=== PATIENT | female | born 1975 | race Caucasian/White ===

== ENCOUNTER → 2020-09-26 08:20 | Outpatient (CLI) | payer OTHER, SELFPAY ==
[2020-08-21 14:11] VITALS: BMI 19.4
[2020-09-26 13:00] LABS: Cholesterol 182 mg/dL (200); High Density Lipoprotein 84 mg/dL; Thyroid Stim Hormone (TSH) 3.06 uIU/mL (0.358-3.74); Triglycerides 52 mg/dL; Very Low Density Lipoprotein 10 mg/dL (5-40)
[2020-09-26 13:02] LABS: Hemoglobin A1c 5.2 % (3.8-5.6)
== END ==
PROVIDERS: PCP Internal Medicine; Referring Provider Internal Medicine; Visit Provider Internal Medicine
DX: Z00.00 Encounter for general adult medical examination without abnormal findings (principal); R53.82 Chronic fatigue, unspecified; Z87.898 Personal history of other specified conditions
CPT/HCPCS: 36415; 80061; 83036; 84443

== ENCOUNTER 2021-05-10 07:04 | Day surgery (SDC) | payer SELFPAY, OTHER ==
[2021-05-01 05:36] VITALS: BMI 18.6
[2021-05-10] VITALS (7 sets, daily range): BP systolic 87–121; BP diastolic 47–64; PULSE 58–70; RESP 14–16; TEMP 36.2–36.8; O2SAT 98–100; BMI 18.4
[2021-05-10 07:38] LABS: Internal QC Validated? YES +Cl - CLEAR BKGD; Pregnancy, Urine Negative Negative
[2021-05-10] MEDS: Lactated Ringers 1,000 ML 100 ML IV (07:44)
--- NOTE | 2021-05-10 07:46 | PCM.HP.BLA ---
History and Physical Date of Admission: 05/10/21 Intake Visit Reasons: Blood in stool Chief Complaint: Blood per rectum Assistant Maintenance Manager Required: No Accompanied by: Self Is patient in pain?: No Allergies pseudoephedrine [From Sudafed] Allergy (Unknown, Verified 05/01/21 13:13) dizziness Sulfa (Sulfonamide Antibiotics) Allergy (Unknown, Verified 05/01/21 13:13) rash Medications NK 05/01/21 [History Confirmed 05/01/21] PFSH Medical History (Updated 05/01/21 @ 13:15 by Yin Collins) Chronic fatigue syndrome Constipation Heart murmur Hemorrhoids History of breast lump MVP (mitral valve prolapse) Ovarian cyst Rectal bleeding Surgical History (Updated 05/01/21 @ 13:15 by Yin Collins) No significant past surgical history Family History (Updated 05/01/21 @ 13:07 by Yin Collins) Father Myocardial infarction, Onset Age: 70 Lung cancer Other COPD (chronic obstructive pulmonary disease) Social History (Updated 05/01/21 @ 13:08 by Yin Collins) Smoking Status: Never smoker second hand exposure: No alcohol intake: current alcohol intake frequency: holidays/special occasions only substance use type: does not use caffeine: No what type of physical activity do you participate in: none frequency: does not exercise HPI HPI HPI: MICHELET SHAVER, is a 45 F who presents to the office today for surgical consultation regarding blood in stool. Her most recent visit with her primary care physician Dr. Leigh Allen was on August 14 04/26/2020. At that time chronic medical problems only included chronic fatigue syndrome and chronic mid back pain. The patient states that she has had an episode of rectal bleeding this was followed up by several more episode possibly a little bit of minor discomfort at the anus but nothing significant. She has never had a colonoscopy. She denies family history of inflammatory bowel disease or Crohn's disease or colon polyps or colon cancer. Recently she has been very stressed as her father was diagnosed with lung cancer. The patient thinks that June 2020 as she had COVID-19 but she did not pursue testing. She has not been vaccinated. She currently denies any abdominal pain. She does complain of right mid back pain frequently when she awakens. This does not seem to be associated with right upper quadrant pain. There have been no investigations regarding this at today. No fever chills or sweats. No unexpected weight loss. She denies any hematuria. The patient is referred by Dr. Flakito Krause and a written copy my surgical consult recommendations were returned to him. 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 [employer] ROS General General: No weight change, appetite, fatigue, colon cancer, breast cancer or weakness HEENT HEENT: No difficulty swallowing, eye injury, eye surgery, swollen glands or hoarseness Endo Endocrine: No thyroid disease, diabetes mellitus, thyroid cancer, Hair loss, heat intolerance or cold intolerance Skin Skin: Yes changing moles; No rash Musc Musculoskeletal: No back problems, arthritis, rheumatoid arthritis, gout or joint pain Cardio Cardiovascular: Yes murmur; No pacemaker, heart disease, atrial fibrillation, high blood pressure, heart attack, heart stent, palpitations, shortness of breat with exertion or chest pain Psych Psychiatric: No depression, anxiety or hearing voices Resp Respiratory: No shortness of breath, No sleep apnea, No cough, No COPD, No asthma, No emphysema and No wheezing Gastro Gastrointestinal: No abdominal pain, No nausea or vomiting, No diarrhea, Yes constipation, Yes blood in stool, No acid reflux, Yes hemorrhoids, No ulcers, No gallbladder problem and No black,tarry stools Jayson Hematologic: No blood thinners, No blood disorders, No bleeding, No anemia and No blood clots Neuro Neurologic: No weakness Exam Const General: cooperative, healthy appearing and comfortable Nutritional Appearance: average body habitus Orientation: alert and awake [facility] Head: normal to inspection Eyes General: appearance normal, both eyes and all related structures Neck Neck: normal visual inspection Resp Effort & Inspection: normal respiratory effort Auscultation: clear to auscultation bilaterally Cardio Rate: regular rate Rhythm: regular rhythm GI Palpation: soft and no hepatosplenomegaly Other: Borborygmi noted, nontender, no masses Musc Cervical Spine: normal cervical lordosis Neuro Cognition: normal cognition Extrem General: no calf tenderness bilaterally Psych Thought Process: normal COVID (Procedure Consent) Procedure Criteria Procedure Criteria: Yes Elective The surgeon/proceduralist and patient have discussed in detail the risk of exposure to and/or potential harm posed by the COVID-19 virus with having a surgery/procedure at this time versus the risk of delaying the surgery/procedure. It is not possible to know either the risk of delaying the surgery or procedure or chance of getting an infection with perfect accuracy, but a joint decision was made between the patient and the surgeon/proceduralist to proceed at this time with the scheduled surgery/procedure as indicated on the consent form. Assessment and Plan Assessment and Plan (1) Rectal bleeding: Status: Acute Plan Details Additional Comments: The patient is on nutritional supplements. She does not believe any of those are anticoagulants. The rectal bleeding fortunately has ceased since yesterday. She denies any current abdominal pain. She has not had any weight loss. The right mid back pain remains a concern. I recommended the patient a colonoscopy with possible biopsy or polypectomy as indicated. She is aware of technique, benefit, risk, alternatives. We will try to schedule expedite her care. Fortunately her bleeding seems to have ceased. Careful inspection for any potential source of bright red rectal bleeding will be pursued. The patient states that she also plans to follow-up with Dr. Leigh Allen regarding her right mid back pain. I appreciate the opportunity of assisting with her surgical care Copy: Dr. Leigh Allen and Dr. Flakito Herrera M.D., F.A.C.S. Coding Level of Care Code Off vis,new,level 2 Diagnoses Rectal bleeding K62.5 I have re-examined the patient. There are no clinical changes since date of exam.
--- NOTE | 2021-05-10 09:14 | OP.CCLET_ITS ---
05/10/2021 Tony Krause [address] [place] [address] Re : Colonoscopy procedure for Patricia Derrick Dear Dr. Krause This procedure was performed on Monday, May 10, 2021. My impressions and recommendations are as follows: Impressions : - Non-thrombosed external hemorrhoids, non-thrombosed internal hemorrhoids and internal hemorrhoids that prolapse with straining, but require manual replacement into the anal canal (Grade III) found on digital rectal exam. - Tortuous colon. - The examination was otherwise normal. - No specimens collected. Recommendations : - Discharge patient to home. - Resume previous diet. - Continue present medications. - Repeat colonoscopy in 10 years for screening purposes. Conservative measures for rectal bleeding secondary to hemorrhoids recommended Patient my return to my office to discuss surgical hemorrhoid options if bleeding recurrs My findings are described in the full procedure note, which is enclosed. If I can be of further assistance, please feel free to contact me at Doctor phone number(s): Work: . Sincerely, Dallas Herrera MD 05/10/2021 9:13:40 AM This report has been signed electronically.
--- NOTE | 2021-05-10 09:14 | OP.COLON_ITS ---
Patient Name: Patricia Meza Procedure Date: 05/10/2021 8:41 AM Date of : 1975 Age: 45 Procedure: Colonoscopy Indications: Rectal bleeding Providers: Dallas Herrera MD Referring MD: Leigh Allen Medicines: See the Anesthesia note for documentation of the administered medications Patient Profile: Last Colonoscopy: none. The patient's first colonoscopy is today. Complications: No immediate complications. Procedure: Pre-Anesthesia Assessment: - Prior to the procedure, a History and Physical was performed, and patient medications and allergies were reviewed. The patient's tolerance of previous anesthesia was also reviewed. The risks and benefits of the procedure and the sedation options and risks were discussed with the patient. All questions were answered, and informed consent was obtained. Prior Anticoagulants: The patient has taken no previous anticoagulant or antiplatelet agents. ASA Grade Assessment: I - A normal, healthy patient. After reviewing the risks and benefits, the patient was deemed in satisfactory condition to undergo the procedure. After I obtained informed consent, the scope was passed under direct vision. Throughout the procedure, the patient's blood pressure, pulse, and oxygen saturations were monitored continuously. The pediatric colonoscope was introduced through the anus and advanced to the cecum, identified by appendiceal orifice and ileocecal valve. The colonoscopy was performed without difficulty. The patient tolerated the procedure well. The quality of the bowel preparation was good. The ileocecal valve and the appendiceal orifice were photographed. Scope In: 8:52:07 AM Scope Withdrawal Time 0 hours 7 minutes 22 seconds Scope Out: 9:07:05 AM Total Procedure Duration Time 0 hours 14 minutes 58 seconds Findings: The digital rectal exam findings include non-thrombosed external hemorrhoids, non-thrombosed internal hemorrhoids and internal hemorrhoids that prolapse with straining, but require manual replacement into the anal canal (Grade III). The colon (entire examined portion) was moderately tortuous. Advancing the scope required changing the patient to a supine position and using manual pressure. The exam was otherwise without abnormality. Impression: - Non-thrombosed external hemorrhoids, non-thrombosed internal hemorrhoids and internal hemorrhoids that prolapse with straining, but require manual replacement into the anal canal (Grade III) found on digital rectal exam. - Tortuous colon. - The examination was otherwise normal. - No specimens collected. Recommendation: - Discharge patient to home. - Resume previous diet. - Continue present medications. - Repeat colonoscopy in 10 years for screening purposes. Conservative measures for rectal bleeding secondary to hemorrhoids recommended Patient my return to my office to discuss surgical hemorrhoid options if bleeding recurrs Procedure Code(s): --- Professional --- 25941, Colonoscopy, flexible; diagnostic, including collection of specimen(s) by brushing or washing, when performed (separate procedure) Diagnosis Code(s): --- Professional --- K64.2, Third degree hemorrhoids K64.4, Residual hemorrhoidal skin tags K62.5, Hemorrhage of anus and rectum Q43.8, Other specified congenital malformations of intestine CPT copyright 2017 [employer]. All rights reserved. The codes documented in this report are preliminary and upon patent searcher review may be revised to meet current compliance requirements. Dallas Herrera MD 05/10/2021 9:13:40 AM This report has been signed electronically. Number of Addenda: 0 Note Initiated On: 05/10/2021 8:41 AM
== END 2021-05-10 09:59 ==
LOC: EN 07:05 → AC 07:06
PROVIDERS: Anesthesiology; PCP Internal Medicine; Referring Provider Internal Medicine; Visit Provider Surgery
PROC: 0DJD8ZZ Inspection of Lower Intestinal Tract, Via Natural or Artificial Opening Endoscopic (ICD-10-PCS; CPT 45378; principal; 2021-05-10 08:10)
DX: K92.1 Melena (principal); K64.2 Third degree hemorrhoids; K64.4 Residual hemorrhoidal skin tags; Q43.8 Other specified congenital malformations of intestine; Z20.822 Contact with and (suspected) exposure to COVID-19; R53.82 Chronic fatigue, unspecified; M54.6 Pain in thoracic spine; G89.29 Other chronic pain; F32.9 Major depressive disorder, single episode, unspecified
CPT/HCPCS: 45378; 81025; 87426; J7120; J2405

== ENCOUNTER → 2023-11-09 | Outpatient (CLI) | payer OTHER, SELFPAY ==
--- OUTSIDE RECORDS SUMMARY | 2023-11-09 16:52 | XMS RPT_ITS | CCD ---
Author Name Unknown Address [address] [place] [address] Organization [facility] Care Team Providers Care News Technical Director Name Role Phone Tony Krause Unavailable Unavailable Jimi, Tony Chan Unavailable Unavailable Tony Krause Unavailable Unavailable Results Test Name Value Interpretation Reference Range Facil ity Encounters Encounter Date Encounter Type Care Provider Facility Start: 10-06-2018 End: 10-07-2018 Patient encounter procedure Tony Krause Facility:[facility] Payers Date Payer Category Payer Unknown 1975 Unknown [id number] Summary Purpose Family History No Family History Records FoundNo Family History Records Found Advance Directives No Advanced Directives Records FoundNo Advanced Directives Records Found Additional Source Comments INFORMATION SOURCE (unrecogn ized section and content) DATE CREATED AUTHOR AUTHOR'S KARLO JOSE 01/26/2020 [facility] FOR RECORDS PERTAINING TO PATIENTS WHO ARE OR HAVE BEEN ENROLLED IN A CHEMICAL DEPENDENCY/SUBSTANCEABUSE PROGRAM, SOME INFORMATION MAY BE OMITTED. This clinical summary was aggregated from multiple sources. Caution should be exercised in using it in the provision of clinical care. This summary normalizes information from multiple sources, and as a consequence, information in this document may materially change the coding, format and clinical context of patient data. In addition, data may be omitted in some cases. CLINICAL DECISIONS SHOULD BE BASED ON THE PRIMARY CLINICAL RECORDS. [employer] provides no warranty or guarantee of the accuracy or completeness of information in this document.
[2023-11-12 15:08] LABS: HPV APTIMA, High Risk Negative (Negative)
== END | disposition home or self-care (01) ==
PROVIDERS: PCP Internal Medicine; Visit Provider Advanced Practice Midwife
DX: Z12.4 Encounter for screening for malignant neoplasm of cervix (principal)
CPT/HCPCS: 87624; 88175; G0145

== ENCOUNTER → 2024-01-06 | Outpatient (CLI) | payer OTHER, SELFPAY ==
[2024-01-06 17:06] LABS: Absolute Lymphocyte Count 2.41 X10^3/uL (0.83-4.51); Absolute Neutrophil Count 7.4 X10^3/uL (2.0-7.7); Basophil# 0.05 X10^3/uL; Basophil% 0.5 % (0-1); Eosinophil# 0.05 X10^3/uL; Eosinophils% 0.5 % (0-5); Hematocrit 41.2 % (37-47); Hemoglobin 13.9 g/dL (12.0-15.0); Lymphocyte # 2.41 X10^3/ul (0.83-4.51); Lymphocyte % 22.9 % (19-41); Mean Corp Hgb Conc 33.7 g/dL (32-36); Mean Corpuscular Hgb 30.2 pg (27.0-32.0); Mean Corpuscular Volume 89.4 fL (81-99); Mean Platelet Vol. 11.8 fl (6.2-12.0); Monocyte# 0.56 X10^3/uL; Monocyte% 5.3 % (0-10); NRBC Flagged by Analyzer 0 % (0-5); Neutrophil # 7.41 X10^3/uL (2.7-7.7); Neutrophil % 70.4 % (47-70); Platelet Count 207 K/mm3 (150-450); RBC Distribution Width CV 12.8 % (11.6-14.6); Red Blood Count 4.61 M/mm3 (4.2-5.4); White Blood Count 10.5 K/mm3 (4.4-11.0)
[2024-01-06 17:39] LABS: ALB/GLOB Ratio 1.2 RATIO (0.9-2.4); AST(SGOT) 16 U/L (15-37); Alanine Aminotransfer ALT/SGPT 20 U/L (13-56); Albumin, Serum 4.1 g/dL (3.2-5.0); Alkaline Phosphatase 47 U/L (45-117); Anion Gap 4 (5-15); BUN 18 mg/dL (7-18); BUN/Creat Ratio 20.9 RATIO (10-20); Calcium,Total 9.3 mg/dL (8.5-10.1); Chloride 107 mmol/L (98-107); Creatinine, Serum 0.86 mg/dL (0.55-1.02); EST Glomerular Filtration Rate 74 mL/min (>60); Est Glom Filt Rate - Afr Amer 90 mL/min (>60); Globulin 3.4 g/dL (2.2-4.2); Glucose 94 mg/dL (74-106); Potassium 4.6 mmol/L (3.5-5.1); Protein, Total 7.5 g/dL (6.4-8.2); Sodium Level 137 mmol/L (136-145)
--- OUTSIDE RECORDS SUMMARY | 2024-01-06 22:36 | XMS RPT_ITS | CCD ---
Author Name Unknown Address [address] [place] [address] Organization [facility] Care Team Providers Care Veterans' Counselor Name Role Phone Tony Krause Unavailable Unavailable Tony Krause Unavailable Unavailable Tony Krause Unavailable Unavailable Results Test Name Value Interpretation Reference Range Facil ity Encounters Encounter Date Encounter Type Care Provider Facility Start: 10-06-2018 End: 10-07-2018 Patient encounter procedure Tony Krause Facility:[facility] Payers Date Payer Category Payer Unknown 1975 Unknown [id number] Summary Purpose Family History No Family History Records FoundNo Family History Records Found Advance Directives No Advanced Directives Records FoundNo Advanced Directives Records Found Additional Source Comments INFORMATION SOURCE (unrecogn ized section and content) DATE CREATED AUTHOR AUTHOR'S KARLO JOSE 01/26/2020 [facility] FOR RECORDS PERTAINING TO PATIENTS WHO [...] BE BASED ON THE PRIMARY CLINICAL RECORDS. [employer] provides no warranty or guarantee of the accuracy or completeness of information in this document.
== END | disposition home or self-care (01) ==
LOC: LAB 16:14
PROVIDERS: PCP Internal Medicine; Referring Provider Internal Medicine; Visit Provider Internal Medicine
DX: R16.0 Hepatomegaly, not elsewhere classified (principal)
CPT/HCPCS: 36415; 80053; 85025

== ENCOUNTER → 2024-01-16 | Outpatient (CLI) | payer SELFPAY, OTHER ==
--- NOTE | 2024-01-16 10:05 | US_ITS ---
STUDY: ABDOMINAL ULTRASOUND REASON FOR EXAM: Female, 48 years old. Large liver, reportedly on x-ray performed in chiropractor office TECHNIQUE: Transabdominal ultrasound was performed with real-time and static thacker scale imaging. TECHNICAL QUALITY: Adequate. COMPARISON: None. FINDINGS: Liver: The liver measures 17.7 cm. There is normal echogenicity of the liver. The bile ducts are within normal limits. There is hepatic color flow. The direction of portal flow is hepatopetal. There is no demonstrated mass lesion. Portal vein measurement: Gallbladder: Normal distended gallbladder. The gallbladder wall measures 2 mm. There is a negative sonographic Britt''s sign. There is no pericholecystic fluid. There are no gallstones. Common Bile Duct (C.B.D.): The common bile duct measures 5 mm. Pancreas: Normal size of the head, body and tail of the pancreas. There is normal echogenicity of the pancreas. There is no demonstrated pancreatic mass or cyst. Spleen: Normal size of the spleen. The spleen measures 8.4 cm. Right Kidney: Normal size of the right kidney. The right kidney measures 11.2 cm. Normal renal cortex. The right cortex measures 1.1 cm. There is no demonstrated renal mass or cyst. There is no right hydronephrosis. Left Kidney: Normal size of the left kidney. The left kidney measures 10.5 cm. Normal renal cortex. The left cortex measures 1.3 cm. There is no demonstrated renal mass or cyst. There is no left hydronephrosis. Aorta: No abdominal aortic aneurysm. I.V.C.: The IVC is patent. There is no ascites. US/Abdomen Complete IMPRESSION: Normal abdominal ultrasound examination. Electronically Signed: Dago Roth MD at 19:42 EDT ,
== END | disposition home or self-care (01) ==
PROVIDERS: PCP Internal Medicine; Referring Provider Internal Medicine; Visit Provider Internal Medicine
DX: R16.0 Hepatomegaly, not elsewhere classified (principal)
CPT/HCPCS: 76700

== ENCOUNTER → 2024-02-29 | Outpatient (CLI) | payer OTHER, SELFPAY ==
--- NOTE | 2024-02-29 08:44 | MRI_ITS ---
EXAM: MR LUMBAR SPINE WITHOUT INTRAVENOUS CONTRAST CLINICAL INDICATION: Back pain, numbness leg ?L2-L3 level -- PLEASE INCLUDE LOWER THORACIC SPINE TECHNIQUE: Multiplanar and multisequence MR images of the lumbar spine without intravenous contrast. COMPARISON: No relevant prior studies available. FINDINGS: VERTEBRAE: Unremarkable. Vertebral body heights are preserved. Normal vertebral bodies and posterior elements. Normal alignment. No spondylolisthesis. There is preservation of the normal lumbar lordosis. SPINAL CORD: Unremarkable. The conus is at L1-2. Normal position and signal intensity of the conus medullaris. SOFT TISSUES: There is increased soft tissue density of the rectoanal junction, vagina, and moderate gas and stool in the rectosigmoid. Please correlate with rectoanal screening for neoplasm. Normal aortoiliac caliber. No visible gallstones or hydronephrosis. DISCS/SPINAL CANAL/NEURAL FORAMINA: L1-L2: Unremarkable. Normal disc height and morphology. Normal spinal canal and lateral recesses. Normal neuroforamina. L2-L3: Unremarkable. Normal disc height and morphology. Normal spinal canal and lateral recesses. Normal neuroforamina. L3-L4: Unremarkable. Normal disc height and morphology. Normal spinal canal and lateral recesses. Normal neuroforamina. L4-L5: Mild decreased T2 signal intensity But normal height, minimal annular disc bulge. L5-S1: Decreased T2 signal intensity. Mild decreased height. There is posterior broad base central disc protrusion-extrusion with annular disc tear, the posterior midline disc projects roughly 6.5 mm distal to the expected margin with a small focus of increased T2 signal suggesting annular tear. The protruding disc closely approaches both S1 nerve roots in the lateral recesses. Prominent venous plexus this level mildly narrow canal. MRI/Spine Lumbar (Routine) IMPRESSION: Degenerative changes at L4-5 and L5-S1 including L5-S1 mild posterior disc midline protrusion-extrusion with annular tear, approaching the bilateral S1 nerve roots in the lateral recesses. Question of increased lower perirectal perianal soft tissue density and no clear fat plane between the rectum and vagina. Please correlate with recent rectovaginal screening for neoplasm. Electronically Signed: Dione Bernardo MD at 6:01 EDT Reading Location ID and State: [facility] / [place] Tel , Service support ,
--- NOTE | 2024-02-29 08:44 | MRI_ITS ---
EXAM: MR THORACIC SPINE WITHOUT INTRAVENOUS CONTRAST CLINICAL INDICATION: Thoracic/lumbar back pain, numbness thigh ?L2-L3 TECHNIQUE: Multiplanar and multisequence MR images of the thoracic spine without intravenous contrast. COMPARISON: No relevant prior studies available. FINDINGS: VERTEBRAE: Unremarkable. No fracture. Normal vertebral bodies and posterior elements. Normal alignment. There is preservation of the normal thoracic kyphosis. No scoliosis. DISCS/SPINAL CANAL/NEURAL FORAMINA: Unremarkable. Normal disc height and morphology. Normal spinal canal and neuroforamina. SPINAL CORD: Unremarkable. Normal in signal and morphology. Normal conus medullaris. SOFT TISSUES: Unremarkable. MRI/Spine Thoracic (Routine) IMPRESSION: Unremarkable MRI of the thoracic spine. Electronically Signed: Dione Bernardo MD at 6:03 EDT ,
== END | disposition home or self-care (01) ==
LOC: MRI 09:32
PROVIDERS: PCP Internal Medicine; Referring Provider Internal Medicine; Visit Provider Internal Medicine
DX: M54.50 Low back pain, unspecified (principal); M54.6 Pain in thoracic spine; R20.0 Anesthesia of skin
CPT/HCPCS: 72146; 72148